=== PATIENT | female | born 1945 | race Hispanic/Latino ===

== ENCOUNTER 2024-01-20 13:33 | Emergency (ER) | payer OTHER, MEDICARE ==
[~2024-01-20] VITALS: Ht 160 cm; Wt 90.7 kg
[2024-01-20 15:00] LABS: BASOPHILS # (AUTO) 0.02 K/uL (0.00-0.20); BASOPHILS % (AUTO) 0.2 % (0.0-5.0); EOSINOPHILS # (AUTO) 0.13 K/uL (0.00-0.70); EOSINOPHILS % (AUTO) 1.5 % (0.0-8.0); HEMATOCRIT 38.6 % (36-48); IMMATURE GRANULOCYTE ABSOLUTE 0.03 K/uL (0-1); LYMPHOCYTES % (AUTO) 12.2 % (21.0-51.0); MEAN CORPUSCULAR HEMOGLOBIN 29.3 pg (27.0-33.0); MEAN CORPUSCULAR HGB CONC 32.6 g/dL (32.0-36.0); MEAN CORPUSCULAR VOLUME 89.8 fL (79-99); MONOCYTES # (AUTO) 1.4 K/uL (0.1-1.0); MONOCYTES % (AUTO) 16.8 % (3.0-13.0); NEUTROPHILS # (AUTO) 5.9 K/uL (1.8-7.7); NEUTROPHILS % (AUTO) 68.9 % (40.0-77.0); PLATELET COUNT (AUTO) 187 K/uL (130-400); RED CELL DISTRIBUTION WIDTH 14.1 % (11.0-15.5); WHITE BLOOD COUNT (AUTO) 8.5 K/uL (4.8-10.8)
[2024-01-20 15:13] LABS: CREATININE 0.9 mg/dL (0.5-1.0); POTASSIUM 4.9 mmol/L (3.5-5.1)
[2024-01-20] MEDS: ONDANSETRON 4MG INJ IVP ONE (15:21)
[2024-01-20 15:33] LABS: SARS-CoV-2, RNA, NAAT POSITIVE SARS CoV-2 (NEGATIVE)
[2024-01-20 15:35] LABS: INFLUENZA TYPE A Negative For Type A (NEGATIVE); INFLUENZA TYPE B Negative For Type B (NEGATIVE)
[2024-01-20] MEDS: DEXAMETHASONE SOD PHOSPHATE 4 MG/ML 1ML VIAL IVP ONE (16:17)
[2024-01-20] MEDS: GUAIFENESIN-CODEINE 5 ML SYRUP PO ONE (16:57)
[2024-01-20] MEDS ORDERED: MOLN200C PO (17:05)
[2024-01-20] MEDS ORDERED: FLUT16H NASAL (17:05)
[2024-01-20 17:16] VITALS: BP 142/60; PULSE 78; RESP 16; O2SAT 97
[2024-01-22 16:12] LABS: RESPIRATORY SYNCYTIAL VIRUS Negative (Negative)
== END 2024-01-20 17:17 | disposition home or self-care (01) ==
LOC: EDH 13:33
DX: U07.1 COVID-19 (principal); E11.9 Type 2 diabetes mellitus without complications; I10 Essential (primary) hypertension; Z87.891 Personal history of nicotine dependence; Z88.0 Allergy status to penicillin
CPT/HCPCS: 99285; 96374; 71045; 87635; 96375; 84484; 80048; 85025; 87420; 87804 ×2; 36415; 93005; J1100; J2405